=== PATIENT | female | born 1980 | race Two or more races ===

== ENCOUNTER → 2019-08-13 | Emergency (ER) | payer BC, MEDICAID ==
[~2019-08-13] VITALS: Ht 157.5 cm; Wt 126.1 kg
[~2019-08-13] MED LIST: MORPHINE SULFATE 4 MG/ML SYR/VIAL IV ONE; ONDANSETRON HCL 4 MG/2 ML VIAL IV ONE; SODIUM CHLORIDE 0.9% 1,000 ML IV ONE; ceFAZolin 1GM/50ML 50 ML IV ONE
[2019-08-13 13:02] LABS: Basophils # (auto) 0.1 10 ^3/uL (0-0.2); Basophils % (auto) 0.6 % (0.0-2.0); Eosinophils # (auto) 0.2 10 ^3/uL (0-0.8); Eosinophils % (auto) 1.5 % (0.0-7.0); Hemoglobin 14.5 g/dL (12.2-16.2); Lymphocytes # (auto) 3.9 10 ^3/uL (0.4-5.4); Lymphocytes % (auto) 31.4 % (10.0-50.0); Mean Corpuscular Hemoglobin 27.3 pg (28.0-32.0); Mean Corpuscular Hgb Conc. 32.3 g/dL (32.0-36.0); Mean Corpuscular Volume 84.5 fL (80.0-100.0); Monocytes # (auto) 0.9 10 ^3/uL (0-1.3); Monocytes % (auto) 7.6 % (0.0-12.0); Neutrophils # (auto) 7.4 10 ^3/uL (1.6-8.6); Neutrophils % (auto) 58.9 % (37.0-80.0); Nucleated Red Blood Cells % 0.1 %; Platelet Count (auto) 363 10^3/uL (140-450); Red Blood Cells 5.33 10^6/uL (4.0-5.20); Red Cell Distribution Width 15.4 % (11.8-14.3); White Blood Cell 12.5 10^3/uL (4.4-10.8)
[2019-08-13 13:16] LABS: Albumin 3.5 g/dL (3.4-5.0); Lipase 195 U/L (73-393); Potassium 3.1 mmol/L (3.5-5.1)
[2019-08-13 13:19] LABS: BUN/Creatinine Ratio 11.3; Bilirubin, Total 0.4 mg/dL (0.2-1.0); Total Protein 7.2 g/dL (6.4-8.2)
[2019-08-13 14:58] VITALS: BP 98/58
== END | disposition home or self-care (01) ==
LOC: ER 12:02
DX: K25.1 Acute gastric ulcer with perforation (principal); R07.89 Other chest pain
CPT/HCPCS: 36415; 71045; 74176; 80053; 83690; 84484; 85025; 96365; 96375; 96376; 99285; J0690; J2270; J2405; J7030; 93005